=== PATIENT | male | born 1975 | race American Indian/Alaskan Native ===

== ENCOUNTER 2022-01-17 06:56 | Outpatient (CLI) | payer MEDICARE, OTHER ==
--- NOTE | 2022-01-17 09:40 | MRI Report ---
PROCEDURE: Knee RT W/O INDICATIONS: PAIN IN KNEE TECHNIQUE: Noncontrast sagittal PD fast spin echo and T2 fast spin echo with fat saturation, sagittal 3-D gradie nt sequence with fat saturation; coronal T1 spin echo and PD fast spin echo with fat saturation, and axial PD fast spin echo with fat saturation through the knee. COMPARISON: None. FINDINGS: Image quality: Excellent. Menisci: There is degenerative fraying and detachment of the free edge/inner third of the medial meni scal body and posterior horn without displaced tear. Lateral meniscus is intact. Cruciate ligaments: The anterior and posterior cruciate ligaments appear intact. Medial structures: The medial collateral ligament appears intact. Visualized portions of the pes ans erinus tendons appear normal. No abnormal bursal fluid. Lateral structures: The lateral collateral ligament, long and short heads of the biceps femoris tend on appear intact. The popliteus tendon appears normal. Iliotibial band appears normal. Anterior structures: The quadriceps and patellar tendons appear intact. Patellar alignment is jossue l. Mild lateral ventral trochlear prominence is present. Mild edema in the superolateral aspect of th e infrapatellar fat pad. Bones and cartilage: No bone marrow contusions or fractures. Articular cartilage fibrillation overli es the lateral patellar facet inferiorly. Joint space: There is physiologic knee joint fluid. No Hernandez's cyst. Normal appearing synovial pli are incidentally noted. IMPRESSION: 1. No internal derangement. 2. Mild degenerative fraying of the free edge of the medial meniscus as described above. 3. Findings consistent with mild lateral patellofemoral friction syndrome with associated articular c artilage loss and lateral ventral trochlear prominence. Reviewed by: Ciaran Porter MD on 01/17/2022 9:39 AM PDT Approved by: Ciaran Porter MD on 01/17/2022 9:39 AM PDT Station ID: [id number]
== END 2022-01-17 06:57 | disposition home or self-care (01) ==
LOC: DI 06:56
PROVIDERS: ATTEND Nurse Practitioner Family
DX: M94.261 Chondromalacia, right knee (principal); M23.303 Other meniscus derangements, unspecified medial meniscus, right knee

== ENCOUNTER 2023-01-22 08:32 | Day surgery (SDC) | payer MEDICARE, OTHER ==
--- NOTE | 2023-01-22 08:15 | ANESTHESIA ---
Pre-Anesthesia VS, & Labs - Diagnosis screening - Procedure colonoscopy - NPO >8 hours Last Fluid Intake: am prep - Lab Results Lab results reviewed: Yes Home Medications and Allergies Home Medications: Ambulatory Orders Citalopram [CeleXA] 20 mg PO DAILY 01/21/23 Methylphenidate HCl [Aptensio Xr] 30 mg PO DAILY 01/21/23 Citalopram [CeleXA] 20 mg PO DAILY 01/21/23 Methylphenidate HCl [Aptensio Xr] 30 mg PO DAILY 01/21/23 Allergies/Adverse Reactions: Allergies Allergy/AdvReac Type Severity Reaction Status Date / Time No Known Drug Allergies Allergy Verified 01/21/23 13:54 Anes History & Medical History - Anesthetic History Anesthesia Complications: reports: No previous complications Family history of Anesthesia Complications: Denies Family history of Malignant Hyperthermia: Denies - Medical History Cardiovascular: reports: Hypertension Pulmonary: reports: None Gastrointestinal: reports: Ulcers Urinary: reports: None Musculoskeletal: reports: None Endocrine/Autoimmune: reports: None Skin: reports: Other Exam General: Alert, Oriented x3, Cooperative Dental: WNL Mouth Openin Fingerbreadth Neck Mobility: Normal Mallampati classification: II Thyromental Distance: 4-6 cm Respiratory: Lungs clear, Normal breath sounds, No respiratory distress Cardiovascular: Regular rate Plan Anesthesia Type: Total IV Consent for Procedure(s) Verified and Reviewed: Yes Code Status: Attempt Resuscitation ASA classification: 2-Mild systemic disease Is this case an emergency?: No
[2023-01-22] MEDS ORDERED: PROPOFOL 500 MG/50 ML 500 MG/50 ML VIAL ONE (08:40)
--- NOTE | 2023-01-22 08:44 | ANESTHESIA ---
Pre-Anesthesia VS, & Labs - Diagnosis screening - Procedure colonoscopy - NPO >8 hours Last Fluid Intake: am prep - Lab Results Lab results reviewed: Yes Home Medications and Allergies Home Medications: Ambulatory Orders Citalopram [CeleXA] 20 mg PO DAILY 01/21/23 Methylphenidate HCl [Aptensio Xr] 30 mg PO DAILY 01/21/23 Citalopram [CeleXA] 20 mg PO DAILY 01/21/23 Methylphenidate HCl [Aptensio Xr] 30 mg PO DAILY 01/21/23 Allergies/Adverse Reactions: Allergies Allergy/AdvReac Type Severity Reaction Status Date / Time No Known Drug Allergies Allergy Verified 01/21/23 13:54 Anes History & Medical History - Anesthetic History Anesthesia Complications: reports: No previous complications Family history of Anesthesia Complications: Denies Family history of Malignant Hyperthermia: Denies - Medical History Cardiovascular: reports: Hypertension Pulmonary: reports: None Gastrointestinal: reports: Ulcers Urinary: reports: None Musculoskeletal: reports: None Endocrine/Autoimmune: reports: None Skin: reports: Other Exam General: Alert, Oriented x3, Cooperative Dental: WNL Mouth Openin Fingerbreadth Neck Mobility: Normal Mallampati classification: II Thyromental Distance: 4-6 cm Respiratory: Lungs clear, Normal breath sounds, No respiratory distress Cardiovascular: Regular rate Neurological: Normal speech Mental/Cognitive Status: Alert/Oriented X3, Normal for patient Cognitive Status: Within normal limits Plan Anesthesia Type: Total IV Consent for Procedure(s) Verified and Reviewed: Yes Code Status: Attempt Resuscitation ASA classification: 2-Mild systemic disease Is this case an emergency?: No
[2023-01-22] MEDS ORDERED: PHENYLEPHRINE 10 MG/ML VIAL ONE (08:56)
[2023-01-22] MEDS ORDERED: LACTATED RINGERS 1,000 ML IV ONE (09:05)
[2023-01-22] MEDS ORDERED: MIDAZOLAM 2 MG/2 ML VIAL ONE (09:15)
[2023-01-22] MEDS ORDERED: LIDOCAINE-MPF 2% 5 ML VIAL ONE (09:47)
[2023-01-22] MEDS ORDERED: GLYCOPYRROLATE 1 MG/5 ML VIAL ONE (09:49)
[2023-01-22] MEDS ORDERED: LACTATED RINGERS 600 ML IV ONE (10:02)
[2023-01-22 10:38] VITALS: BP 125/85
--- NOTE | 2023-01-22 12:00 | ANESTHESIA POST OP EVALUATION ---
Anesthesia Post Eval - Post Anesthesia Eval Vitals: Last Vital Signs Temp 36.0 C L 01/22/23 10:37 Pulse 65 01/22/23 10:37 Resp 12 01/22/23 10:37 BP 125/85 H 01/22/23 10:37 Pulse Ox 100 01/22/23 10:37 O2 Flow Rate CV Function Including HR & BP: Stable Pain Control: Satisfactory Nausea & Vomiting: Negative Mental Status: Baseline Respiratory Status: Airway Patent Hydration Status: Satisfactory Anesthesia Complications: None
== END 2023-01-22 08:33 | disposition home or self-care (01) ==
LOC: SDS 08:32
PROVIDERS: ATTEND Surgery
DX: Z12.11 Encounter for screening for malignant neoplasm of colon (principal); K64.1 Second degree hemorrhoids; F41.8 Other specified anxiety disorders
CPT/HCPCS: 45378; J7120

== ENCOUNTER 2023-03-14 16:33 | Emergency (ER) | payer MEDICARE, OTHER ==
[2023-03-14 16:39] VITALS: BP 148/96
[2023-03-14] MEDS ORDERED: BUFFERED LIDOCAINE 10 ML SYRINGE SUBQ STA (16:39)
[2023-03-14] MEDS ORDERED: AMOX/CLAV 875 MG/125 MG TABLET PO STA (16:43)
--- NOTE | 2023-03-14 16:44 | ED Physician Documentation ---
PD HPI UPPER EXT INJURY - Stated complaint Stated Complaint: RT HAND INJURY - Chief complaint Chief Complaint: Laceration - History obtained from History obtained from: Patient (47-year-old right-handed gentleman who is up-to-date on tetanus was bitten on the right hand while trying to break up a dog fight by dog fully immunized against rabies just prior to arrival.) PD PAST MEDICAL HISTORY - Past Medical History Cardiovascular: Hypertension Respiratory: None Endocrine/Autoimmune: None GI: Ulcers : None HEENT: None Psych: Depression, ADD/ADHD Musculoskeletal: None Derm: Other - Present Medications Home Medications: Ambulatory Orders Medication Instructions Recorded Confirmed Citalopram [CeleXA] 20 mg PO DAILY 01/21/23 01/22/23 Methylphenidate HCl [Aptensio Xr] 30 mg PO DAILY 01/21/23 01/22/23 Amox/Clav 875/125 [Augmentin] 1 each PO Q12H #10 tablet 03/14/23 - Allergies Allergies/Adverse Reactions: Allergies Allergy/AdvReac Type Severity Reaction Status Date / Time No Known Drug Allergies Allergy Verified 03/14/23 16:36 PD ED PE NORMAL - Vitals Vital signs reviewed: Yes - General General: Alert and oriented X 3, No acute distress - Extremities Extremities: Other (2 cm laceration just distal to the MCP of the second digit of the dorsal right hand, just in the subcutaneous tissue without affecting the extensor tendon either on inspection or function. No distal neurovascular compromise.) - Neuro Neuro: Alert and oriented X 3, Normal speech Results - Vitals Vitals: Vital Signs - 24 hr 03/14/23 16:36 Temperature 36.5 C Heart Rate 66 Respiratory 16 Rate Blood Pressure 148/96 H O2 Saturation 96 Oxygen O2 Source Room air Procedures - Laceration (location) R hand Length in cm: 2 Wound type: Linear, Into subcut fat Neurovascular status: Sensory intact, Motor intact Tendon involvement: Tendon intact Anesthesia: Lidocaine 1%, With bicarb Wound preparation: Hibiclens, Irrigated copiously NS Skin layer closure: Nylon, Interrupted, Size #-0 - enter number (4-0), Sutures - enter # (5) Other: Patient tolerated well, No complications, Neurovascular intact Departure - Departure Disposition: 01 Home, Self Care Clinical Impression: Laceration of hand Qualifiers: Encounter type: initial encounter Foreign body presence: without foreign body Laterality: right Qualified Code(s): S61.411A - Laceration without foreign body of right hand, initial encounter Dog bite Qualifiers: Encounter type: initial encounter Qualified Code(s): W54.0XXA - Bitten by dog, initial encounter Condition: Good Record reviewed to determine appropriate education?: Yes Instructions: ED Laceration Hand Prescriptions: Amox/Clav 875/125 [Augmentin] 1 each PO Q12H #10 tablet Comments: Come back for any signs of infection which would include: Redness, swelling, drainage, increased pain, or fevers. You can wash it soap and water. Keep it covered and moist with bacitracin ointment which is available over the counter; avoid neosporin. Follow-up with your physician in about 14 days for suture removal.
== END 2023-03-14 17:15 | disposition home or self-care (01) ==
LOC: ED 16:33
DX: S61.411A Laceration without foreign body of right hand, initial encounter (principal); W54.0XXA Bitten by dog, initial encounter; Y93.K9 Activity, other involving animal care
CPT/HCPCS: 12001; 99282; A9270